=== PATIENT | male | born 1935 | race Caucasian/White ===

== ENCOUNTER 2021-03-07 20:05 | Inpatient (IN) ==
[2021-03-07] MEDS ORDERED: ONDANSETRON 4 MG/2 ML VIAL IV PRN (23:54)
[2021-03-08] MEDS ORDERED: ENOXAPARIN 100 MG/ML SYRINGE SUBCUT SCH ×2 (01:00)
[2021-03-08] MEDS: SODIUM CHLORIDE 0.9% 1,000 ML IV SCH ×2 (01:45→19:16)
[2021-03-08 04:32] LABS: Basophils # 0.1 10*3/uL (0.0-0.2); Basophils % 0.6 % (0.0-0.8); Eosinophils # 0.1 10*3/uL (0.0-0.87); Eosinophils % 1.6 % (0.00-10.9); Hematocrit 40.7 VOL% (42.0-52.0); Hemoglobin 13.8 GM/DL (14.0-18.0); Immature Granulocytes % 0.2 %; Immature Granulocytes Absolute 0.02 #; Lymphocytes % 22.8 % (21.2-54.2); Mean Corpuscular HGB Conc 33.9 GM/DL (32-36); Mean Platelet Volume 9.8 FL (9.6-12.0); Neutrophils % 68.8 % (38.7-73.9); Platelet Count 242 T/CUMM (130-400); Red Blood Count 4.07 MC/CUMM (3.8-5.5); Red Cell Distribution Width 12.1 % (9.3-17.3); White Blood Count 8.8 T/CUMM (4-12)
[2021-03-08 05:00] LABS: Risk Ratio 4.62; VLDL Cholesterol 31.8 MG/DL
[2021-03-08 05:02] LABS: Albumin 3.4 G/DL (3.4-5.0); Bilirubin,Total 0.9 MG/DL (0.20-1.00); Calcium 8.9 MG/DL (8.5-10.1); Potassium 4.3 MMOL/L (3.5-5.1); Total Protein 6.6 G/DL (6.4-8.2)
[2021-03-08] MEDS: NITROGLYCERIN 2% OINT 1 INCH/GM PACK TOP SCH ×2 (08:42→19:15)
[2021-03-08] MEDS ORDERED: NON-FORMULARY MEDICATION (Omeprazole 40 mg capsule,delayed release(DR/EC)) PO SCH (09:00)
[2021-03-08] MEDS ORDERED: ASPIRIN EC 325 MG TABLET PO SCH (09:00)
[2021-03-08] MEDS ORDERED: DIAZEPAM 5 MG TABLET PO ONE (09:04)
[2021-03-08] MEDS ORDERED: diphenhydrAMINE CAP 25 MG CAPSULE PO ONE (09:04)
[2021-03-08] MEDS: LOSARTAN 50 MG TABLET PO SCH (09:05)
[2021-03-08] MEDS: GABAPENTIN 300 MG CAPSULE PO SCH (09:05)
[2021-03-08] MEDS: PANTOPRAZOLE 40 MG TABLET PO SCH (09:05)
[2021-03-08] MEDS: PRAMIPEXOLE 0.25 MG TABLET PO SCH (09:05)
[2021-03-08] MEDS: hydroCHLOROthiazide 25 MG TABLET PO SCH (09:05)
[2021-03-08] MEDS ORDERED: HEPARIN/NACL 0.9% 2 UNITS/ML 2,000 UNIT/1,000 ML BAG IV ONE (09:35)
[2021-03-08] MEDS ORDERED: LIDOCAINE 1% 20 ML VIAL ONE (09:35)
[2021-03-08] MEDS ORDERED: fentaNYL 100 MCG/2 ML VIAL ONE (10:08)
[2021-03-08] MEDS ORDERED: MIDAZOLAM 2 MG/2 ML VIAL ONE (10:08)
[2021-03-08] MEDS ORDERED: MORPHINE 2 MG/1 ML SYRINGE IV PRN (10:47)
[2021-03-08] MEDS ORDERED: ACETAMINOPHEN 325 MG TABLET PO PRN (10:47)
[2021-03-08] MEDS: METOPROLOL SUCCINATE XL 25 MG TABLET PO SCH (19:14)
[2021-03-08] MEDS: HEPARIN DRIP 25,000 UNITS/500 ML PREMIX IV SCH (20:40)
[2021-03-08] MEDS: ZALEPLON 5 MG CAPSULE PO PRN (21:03)
[2021-03-08] MEDS: ROSUVASTATIN 20 MG TABLET PO SCH (21:03)
[2021-03-09] MEDS: NITROGLYCERIN 2% OINT 1 INCH/GM PACK TOP SCH ×4 (01:05→19:46)
[2021-03-09 03:20] LABS: Basophils % 0.2 % (0.0-0.8); Eosinophils % 0.3 % (0.00-10.9); Hematocrit 39.7 VOL% (42.0-52.0); Hemoglobin 13.7 GM/DL (14.0-18.0); Immature Granulocytes % 0.4 %; Immature Granulocytes Absolute 0.04 #; Lymphocytes # 1.5 10*3/uL (1.4-4.0); Mean Corpuscular HGB Conc 34.5 GM/DL (32-36); Mean Corpuscular Volume 98.5 FL (87-102); Mean Platelet Volume 9.9 FL (9.6-12.0); Monocytes % 7.8 % (1.7-12.7); Neutrophils % 77.3 % (38.7-73.9); Platelet Count 229 T/CUMM (130-400); Red Blood Count 4.03 MC/CUMM (3.8-5.5); White Blood Count 10.4 T/CUMM (4-12)
[2021-03-09 03:40] LABS: Calcium 8.7 MG/DL (8.5-10.1)
[2021-03-09 03:45] LABS: Risk Ratio 4.33; VLDL Cholesterol 23.4 MG/DL
[2021-03-09] MEDS: ASPIRIN EC 81 MG TABLET PO SCH (10:25)
[2021-03-09] MEDS: diphenhydrAMINE CAP 25 MG CAPSULE PO SCH (10:25)
[2021-03-09] MEDS: GABAPENTIN 300 MG CAPSULE PO SCH (10:25)
[2021-03-09] MEDS: PRAMIPEXOLE 0.25 MG TABLET PO SCH (10:25)
[2021-03-09] MEDS: METOPROLOL SUCCINATE XL 25 MG TABLET PO SCH (10:26)
[2021-03-09] MEDS: hydroCHLOROthiazide 25 MG TABLET PO SCH (10:27)
[2021-03-09] MEDS: LOSARTAN 50 MG TABLET PO SCH (10:27)
[2021-03-09] MEDS: PANTOPRAZOLE 40 MG TABLET PO SCH (10:27)
[2021-03-09] MEDS ORDERED: GLUCAGON 1 MG VIAL IM PRN (12:51)
[2021-03-09] MEDS ORDERED: DEXTROSE 50% 25 GM/50 ML VIAL IV PRN (12:51)
[2021-03-09] MEDS: HEPARIN DRIP 25,000 UNITS/500 ML PREMIX IV SCH (18:32)
[2021-03-09] MEDS: ROSUVASTATIN 20 MG TABLET PO SCH (20:40)
[2021-03-09] MEDS: ZALEPLON 5 MG CAPSULE PO PRN (20:40)
[2021-03-10] MEDS: NITROGLYCERIN 2% OINT 1 INCH/GM PACK TOP SCH ×5 (01:55→23:39)
[2021-03-10 05:19] LABS: Calcium 8.4 MG/DL (8.5-10.1); Osmolality,Calculated 274.1 MOS/KG (273-304); Potassium 3.7 MMOL/L (3.5-5.1)
[2021-03-10] MEDS: diphenhydrAMINE CAP 25 MG CAPSULE PO SCH (09:28)
[2021-03-10] MEDS: GABAPENTIN 300 MG CAPSULE PO SCH (09:28)
[2021-03-10] MEDS: hydroCHLOROthiazide 25 MG TABLET PO SCH (09:28)
[2021-03-10] MEDS: LOSARTAN 50 MG TABLET PO SCH (09:29)
[2021-03-10] MEDS: PANTOPRAZOLE 40 MG TABLET PO SCH (09:29)
[2021-03-10] MEDS: ASPIRIN EC 81 MG TABLET PO SCH (09:29)
[2021-03-10] MEDS: PRAMIPEXOLE 0.25 MG TABLET PO SCH (09:29)
[2021-03-10] MEDS: METOPROLOL SUCCINATE XL 25 MG TABLET PO SCH (09:29)
[2021-03-10] MEDS: HEPARIN DRIP 25,000 UNITS/500 ML PREMIX IV SCH ×2 (14:04→19:27)
[2021-03-10] MEDS: ROSUVASTATIN 20 MG TABLET PO SCH (21:07)
[2021-03-10] MEDS: MELATONIN 3 MG TABLET PO PRN (21:08)
[2021-03-11 03:03] LABS: Basophils % 0.7 % (0.0-0.8); Eosinophils # 0.3 10*3/uL (0.0-0.87); Eosinophils % 4.3 % (0.00-10.9); Hematocrit 36.6 VOL% (42.0-52.0); Hemoglobin 12.4 GM/DL (14.0-18.0); Immature Granulocytes % 0.2 %; Immature Granulocytes Absolute 0.01 #; Lymphocytes # 2.1 10*3/uL (1.4-4.0); Lymphocytes % 34.2 % (21.2-54.2); Mean Corpuscular HGB Conc 33.9 GM/DL (32-36); Mean Corpuscular Volume 99.7 FL (87-102); Mean Platelet Volume 10.2 FL (9.6-12.0); Monocytes % 7.7 % (1.7-12.7); Neutrophils % 52.9 % (38.7-73.9); Platelet Count 187 T/CUMM (130-400); Red Blood Count 3.67 MC/CUMM (3.8-5.5); Red Cell Distribution Width 12.2 % (9.3-17.3); White Blood Count 6.1 T/CUMM (4-12)
[2021-03-11 03:21] LABS: Calcium 8.4 MG/DL (8.5-10.1); Osmolality,Calculated 268.5 MOS/KG (273-304); Potassium 3.4 MMOL/L (3.5-5.1)
[2021-03-11] MEDS: NITROGLYCERIN 2% OINT 1 INCH/GM PACK TOP SCH ×3 (06:38→20:03)
[2021-03-11] MEDS ORDERED: POTASSIUM CHLORIDE 20 MEQ TABLET PO ONE (07:22)
[2021-03-11] MEDS: DAPAGLIFLOZIN 5 MG TABLET PO SCH (09:18)
[2021-03-11] MEDS: AMIODARONE 200 MG TABLET PO SCH ×2 (09:18→20:40)
[2021-03-11] MEDS: MAGNESIUM OXIDE 400 MG TABLET PO SCH ×2 (09:18→20:40)
[2021-03-11] MEDS: ASPIRIN EC 81 MG TABLET PO SCH (09:18)
[2021-03-11] MEDS: PANTOPRAZOLE 40 MG TABLET PO SCH (09:19)
[2021-03-11] MEDS: LOSARTAN 50 MG TABLET PO SCH (09:19)
[2021-03-11] MEDS: PRAMIPEXOLE 0.25 MG TABLET PO SCH (09:19)
[2021-03-11] MEDS: GABAPENTIN 300 MG CAPSULE PO SCH (09:19)
[2021-03-11] MEDS: METOPROLOL SUCCINATE XL 25 MG TABLET PO SCH (09:19)
[2021-03-11] MEDS: diphenhydrAMINE CAP 25 MG CAPSULE PO SCH (09:20)
[2021-03-11] MEDS: NICOTINE 14 MG/24 HR PATCH TRANSDERM SCH (09:27)
[2021-03-11] MEDS: HEPARIN DRIP 25,000 UNITS/500 ML PREMIX IV SCH (16:30)
[2021-03-11] MEDS: POTASSIUM CHLORIDE 20 MEQ TABLET PO SCH ×2 (20:40→21:10)
[2021-03-11] MEDS: ROSUVASTATIN 20 MG TABLET PO SCH (20:40)
[2021-03-11] MEDS: MELATONIN 3 MG TABLET PO PRN (20:40)
[2021-03-12] MEDS: NITROGLYCERIN 2% OINT 1 INCH/GM PACK TOP SCH ×4 (01:14→21:44)
[2021-03-12] MEDS: ZALEPLON 5 MG CAPSULE PO PRN ×2 (01:35→23:55)
[2021-03-12 06:29] LABS: Basophils % 0.6 % (0.0-0.8); Eosinophils # 0.3 10*3/uL (0.0-0.87); Eosinophils % 4.7 % (0.00-10.9); Hematocrit 37.1 VOL% (42.0-52.0); Hemoglobin 12.2 GM/DL (14.0-18.0); Immature Granulocytes % 0.5 %; Immature Granulocytes Absolute 0.03 #; Lymphocytes # 1.9 10*3/uL (1.4-4.0); Lymphocytes % 29.4 % (21.2-54.2); Mean Corpuscular HGB Conc 32.9 GM/DL (32-36); Mean Corpuscular Volume 103.1 FL (87-102); Mean Platelet Volume 10.6 FL (9.6-12.0); Neutrophils % 54.8 % (38.7-73.9); Platelet Count 218 T/CUMM (130-400); White Blood Count 6.4 T/CUMM (4-12)
[2021-03-12 06:33] LABS: Albumin 3.1 G/DL (3.4-5.0); Bilirubin,Total 0.5 MG/DL (0.20-1.00); Calcium 8.9 MG/DL (8.5-10.1); Osmolality,Calculated 273.1 MOS/KG (273-304); Potassium 4.6 MMOL/L (3.5-5.1); Total Protein 6.3 G/DL (6.4-8.2)
[2021-03-12] MEDS: CHLORHEXIDINE 4% SOLN 118 ML BOTTLE TOP SCH ×2 (08:30→18:00)
[2021-03-12] MEDS ORDERED: SODIUM CHLORIDE 0.9% 1,000 ML IV SCH (09:00)
[2021-03-12 09:11] LABS: ABG Base Excess -5.1 MMOL/L (-2.5-2.5); ABG HCO3 20.2 MMOL/L (20-26); ABG Oxygen Saturation 96.1 % (95-100); ABG PCO2 29.6 MM HG (35-48); ABG PH 7.403 (7.35-7.45); ABG PO2 87.8 MM HG (80-95); ABG TCO2 16.1 MMOL/L (23-27)
[2021-03-12] MEDS: CHLORHEXIDINE 0.12% ORAL RINSE 60 ML BOTTLE SWISH/SPIT SCH ×2 (10:08→21:39)
[2021-03-12] MEDS: DAPAGLIFLOZIN 5 MG TABLET PO SCH (10:09)
[2021-03-12] MEDS: GABAPENTIN 300 MG CAPSULE PO SCH (10:10)
[2021-03-12] MEDS: MAGNESIUM OXIDE 400 MG TABLET PO SCH ×2 (10:10→21:34)
[2021-03-12] MEDS: diphenhydrAMINE CAP 25 MG CAPSULE PO SCH (10:10)
[2021-03-12] MEDS: ASPIRIN EC 81 MG TABLET PO SCH (10:10)
[2021-03-12] MEDS: PRAMIPEXOLE 0.25 MG TABLET PO SCH (10:10)
[2021-03-12] MEDS: AMIODARONE 200 MG TABLET PO SCH ×2 (10:10→21:34)
[2021-03-12] MEDS: LOSARTAN 50 MG TABLET PO SCH (10:11)
[2021-03-12] MEDS: POTASSIUM CHLORIDE 20 MEQ TABLET PO SCH ×2 (10:11→21:34)
[2021-03-12] MEDS: NICOTINE 14 MG/24 HR PATCH TRANSDERM SCH (10:18)
[2021-03-12] MEDS: PANTOPRAZOLE 40 MG TABLET PO SCH (10:21)
[2021-03-12] MEDS: METOPROLOL SUCCINATE XL 25 MG TABLET PO SCH (10:21)
[2021-03-12] MEDS ORDERED: DIAZEPAM 5 MG TABLET PO ONE (10:54)
[2021-03-12] MEDS ORDERED: PANTOPRAZOLE 40 MG TABLET PO ONE (10:54)
[2021-03-12] MEDS: HEPARIN DRIP 25,000 UNITS/500 ML PREMIX IV SCH (13:34)
[2021-03-12] MEDS: ROSUVASTATIN 20 MG TABLET PO SCH (21:34)
[2021-03-12] MEDS: MELATONIN 3 MG TABLET PO PRN (21:34)
[2021-03-13] MEDS: NITROGLYCERIN 2% OINT 1 INCH/GM PACK TOP SCH ×2 (00:30→05:41)
[2021-03-13] MEDS: CHLORHEXIDINE 4% SOLN 118 ML BOTTLE TOP SCH (04:00)
[2021-03-13] MEDS ORDERED: VANCOMYCIN INJ 1,000 MG in SODIUM CHLORIDE 0.9% 250 ML IV ONE (05:00)
[2021-03-13] MEDS ORDERED: VANCOMYCIN 1,000 MG VIAL ONE (05:08)
[2021-03-13] MEDS ORDERED: VANCOMYCIN 500 MG VIAL ONE (05:08)
[2021-03-13] MEDS ORDERED: PAPAVERINE 60 MG/2 ML VIAL ONE (05:08)
[2021-03-13] MEDS ORDERED: DIAZEPAM 5 MG TABLET PO ONE (06:00)
[2021-03-13] MEDS ORDERED: PANTOPRAZOLE 40 MG TABLET PO ONE (06:00)
[2021-03-13] MEDS ORDERED: SODIUM CHLORIDE 0.9% 1,000 ML IV SCH (06:00)
[2021-03-13] MEDS ORDERED: ALBUTEROL/IPRATROPIUM 3 ML NEB RESP TX ONE (06:02)
[2021-03-13 06:06] LABS: Basophils % 0.5 % (0.0-0.8); Eosinophils # 0.2 10*3/uL (0.0-0.87); Eosinophils % 4.2 % (0.00-10.9); Hematocrit 37.3 VOL% (42.0-52.0); Hemoglobin 12.5 GM/DL (14.0-18.0); Immature Granulocytes % 0.3 %; Immature Granulocytes Absolute 0.02 #; Lymphocytes # 1.7 10*3/uL (1.4-4.0); Lymphocytes % 28.5 % (21.2-54.2); Mean Corpuscular HGB Conc 33.5 GM/DL (32-36); Mean Corpuscular Volume 100.3 FL (87-102); Monocytes % 7.8 % (1.7-12.7); Neutrophils % 58.7 % (38.7-73.9); Platelet Count 233 T/CUMM (130-400); Red Blood Count 3.72 MC/CUMM (3.8-5.5); Red Cell Distribution Width 12.1 % (9.3-17.3); White Blood Count 5.8 T/CUMM (4-12)
[2021-03-13] MEDS ORDERED: SUFentanil 250 MCG/5 ML AMP ONE ×2 (06:08)
[2021-03-13] MEDS ORDERED: MIDAZOLAM 10 MG/2 ML VIAL ONE ×4 (06:08)
[2021-03-13] MEDS ORDERED: AMINOCAPROIC ACID 5,000 MG/20 ML VIAL ONE ×4 (06:12→07:49)
[2021-03-13 06:15] LABS: PT Patient Result 10.9 SECS (10.5-12.0); Partial Thromboplastin Time 27.3 SECS (23.9-33.8)
[2021-03-13 06:25] LABS: Albumin 3.4 G/DL (3.4-5.0); Calcium 8.9 MG/DL (8.5-10.1); Osmolality,Calculated 272.1 MOS/KG (273-304); Potassium 4.5 MMOL/L (3.5-5.1); Total Protein 6.8 G/DL (6.4-8.2)
[2021-03-13 07:39] LABS: ABG Base Excess -4.8 MMOL/L (-2.5-2.5); ABG HCO3 20.3 MMOL/L (20-26); ABG Oxygen Saturation 98.3 % (95-100); ABG PCO2 37.4 MM HG (35-48); ABG PH 7.352 (7.35-7.45); ABG TCO2 21.4 MMOL/L (23-27); Glucose Heart Surgery 108 MG/DL (74-106); Hemoglobin Heart Surgery 11.9 G/DL (14.0-18.0); PCO2 Patient Temp Arterial 37.4 MMHG; PH Patient Temp Arterial 7.352; Patient Temperature 37 CELCIUS; Potassium Heart/CVR 4.1 MMOL/L (3.5-5.1); Sodium Heart/CVR 134 MMOL/L (135-145)
[2021-03-13 07:46] LABS: Bilirubin,Urine Negative (Negative); Blood, Urine Negative (Negative); Glucose,Urine (UA) >=500 mg/dL (Negative); Ketones,Urine Negative (Negative); Nitrite,Urine Negative (Negative); Protein,Urine Negative; RBC,Urine <1 /HPF (0-4); Urine Appearance CLEAR (Clear); Urine Color Yellow (Yellow); Urine Specific Gravity 1.009 (1.001-1.035); Urine Urobilinogen < 2.0 EU/DL (0.2-1.0)
[2021-03-13] MEDS ORDERED: SEVOFLURANE 1 UNIT/15 MINUTE INH ONE ×2 (07:49→12:50)
[2021-03-13] MEDS ORDERED: ePHEDrine 50 MG/ML VIAL ONE (07:49)
[2021-03-13] MEDS ORDERED: PHENYLEPHRINE DRIP 20 MG/250 ML PREMIX IV ONE (07:49)
[2021-03-13] MEDS ORDERED: LACTATED RINGERS 1,000 ML IV ONE (07:50)
[2021-03-13] MEDS ORDERED: SODIUM CHLORIDE 0.9% 250 ML IV ONE (07:50)
[2021-03-13] MEDS ORDERED: SODIUM CHLORIDE 0.9% 100 ML IV ONE (07:50)
[2021-03-13] MEDS ORDERED: SODIUM CHLORIDE 0.9% 1,000 ML IV ONE (07:50)
[2021-03-13] MEDS ORDERED: LIDOCAINE 2% 5 ML VIAL ONE ×3 (07:50→12:51)
[2021-03-13 08:32] LABS: Hematocrit Heart Surgery 22.1 PERCENT (42-52); Hemoglobin Heart Surgery 7.1 G/DL (14.0-18.0); PCO2 Patient Temp Venous 31.8 MM HG; PH Patient Temp Venous 7.423; PO2 Patient Temp Venous 40.9 MM HG; Potassium Heart/CVR 4.8 MMOL/L (3.5-5.1); VBG HCO3 21.6 MEQ/L (24-28); VBG Oxygen Saturation 80.3 %; VBG PH 7.394; VBG PO2 46.9 MMHG (17-40); VBG Total CO2 20.3 MMOL/L
[2021-03-13] MEDS ORDERED: ALBUMIN 5% 12.5 GM/250 ML VIAL IV ONE (08:53)
[2021-03-13] MEDS ORDERED: diphenhydrAMINE 50 MG/1 ML VIAL ONE (08:53)
[2021-03-13] MEDS ORDERED: HEPARIN/NACL 0.9% 2 UNITS/ML 1,000 UNIT/500 ML BAG IV ONE ×2 (08:53→10:04)
[2021-03-13] MEDS ORDERED: DOBUTamine 500 MG/250 ML PREMIX IV ONE (08:53)
[2021-03-13] MEDS ORDERED: FAMOTIDINE 20 MG/2 ML VIAL IV ONE (08:54)
[2021-03-13 09:05] LABS: Hematocrit Heart Surgery 22.8 PERCENT (42-52); Hemoglobin Heart Surgery 7.3 G/DL (14.0-18.0); PCO2 Patient Temp Venous 29.7 MM HG; PH Patient Temp Venous 7.427; PO2 Patient Temp Venous 42.2 MM HG; Potassium Heart/CVR 4.7 MMOL/L (3.5-5.1); VBG Base Excess -4.1 MEQ/L (0-4); VBG HCO3 20.8 MEQ/L (24-28); VBG PCO2 32.7 MMHG (41-51); VBG PH 7.398; VBG PO2 48.3 MMHG (17-40)
[2021-03-13] MEDS ORDERED: CALCIUM CHLORIDE 1,000 MG/10 ML VIAL IV ONE (09:06)
[2021-03-13] MEDS ORDERED: EPINEPHrine 1 MG/ML VIAL ONE ×3 (09:39→13:35)
[2021-03-13] MEDS ORDERED: POTASSIUM CHLORIDE RIDER 20 MEQ/100 ML PREMIX IV ONE (09:47)
[2021-03-13] MEDS ORDERED: ALBUMIN 5% 25.0 GM/500 ML VIAL IV ONE (09:47)
[2021-03-13] MEDS ORDERED: PHENYLEPHRINE DRIP 40 MG/250 ML PREMIX IV ONE (09:48)
[2021-03-13 09:51] LABS: Hematocrit Heart Surgery 23.6 PERCENT (42-52); Hemoglobin Heart Surgery 7.6 G/DL (14.0-18.0); PCO2 Patient Temp Venous 35.2 MM HG; PH Patient Temp Venous 7.37; Potassium Heart/CVR 4.5 MMOL/L (3.5-5.1); VBG Base Excess -4.4 MEQ/L (0-4); VBG HCO3 20.5 MEQ/L (24-28); VBG Oxygen Saturation 78.5 %; VBG PCO2 35.2 MMHG (41-51); VBG PH 7.37; VBG Total CO2 19.2 MMOL/L
[2021-03-13] MEDS ORDERED: ALBUMIN 25% 25 GM/100 ML VIAL IV ONE (10:03)
[2021-03-13] MEDS ORDERED: MAGNESIUM SULFATE 5 GM/10 ML VIAL IV ONE (10:04)
[2021-03-13] MEDS ORDERED: DEXTROSE 5% KCL 20 MEQ 20 MEQ/1,000 ML BAG IV ONE (10:04)
[2021-03-13] MEDS ORDERED: MANNITOL 100 GM/500 ML BAG IV ONE (10:04)
[2021-03-13] MEDS ORDERED: PROTAMINE SULFATE 250 MG/25 ML VIAL IV ONE (10:04)
[2021-03-13] MEDS ORDERED: methylPREDNISolone SOD SUC 1,000 MG/8 ML VIAL ONE (10:04)
[2021-03-13] MEDS ORDERED: HEPARIN 10,000 UNIT/10 ML VIAL ONE (10:05)
[2021-03-13] MEDS ORDERED: PROTAMINE SULFATE 50 MG/5 ML VIAL IV ONE (10:05)
[2021-03-13] MEDS ORDERED: SODIUM BICARBONATE 50 MEQ/50 ML VIAL IV ONE ×6 (10:05→17:41)
[2021-03-13] MEDS ORDERED: FUROSEMIDE 20 MG/2 ML VIAL ONE (10:05)
[2021-03-13 10:17] LABS: ABG Base Excess -7.5 MMOL/L (-2.5-2.5); ABG HCO3 17.5 MMOL/L (20-26); ABG Oxygen Saturation 98.1 % (95-100); ABG PCO2 33.3 MM HG (35-48); ABG PH 7.339 (7.35-7.45); ABG PO2 191.9 MM HG (80-95); ABG TCO2 18.5 MMOL/L (23-27); Glucose Heart Surgery 255 MG/DL (74-106); Hemoglobin Heart Surgery 8.5 G/DL (14.0-18.0); Ionized Calcium Arterial 1.25 MMOL/L (1.21-1.46); PCO2 Patient Temp Arterial 33.3 MMHG; PH Patient Temp Arterial 7.339; PO2 Patient Temp Arterial 191.9 MM HG; Patient Temperature 37 CELCIUS; Potassium Heart/CVR 3.9 MMOL/L (3.5-5.1); Sodium Heart/CVR 127 MMOL/L (135-145)
[2021-03-13 10:52] LABS: ABG Base Excess -4.1 MMOL/L (-2.5-2.5); ABG Oxygen Saturation 99.2 % (95-100); ABG PCO2 39.5 MM HG (35-48); ABG PH 7.339 (7.35-7.45); Glucose Heart Surgery 268 MG/DL (74-106); Hematocrit Heart Surgery 24.1 PERCENT (42-52); Hemoglobin Heart Surgery 7.7 G/DL (14.0-18.0); Ionized Calcium Arterial 1.25 MMOL/L (1.21-1.46); PCO2 Patient Temp Arterial 39.5 MMHG; PH Patient Temp Arterial 7.339; Patient Temperature 37 CELCIUS; Potassium Heart/CVR 4.3 MMOL/L (3.5-5.1); Sodium Heart/CVR 134 MMOL/L (135-145)
[2021-03-13] MEDS ORDERED: EPINEPHrine 1 MG/10 ML SYRINGE ONE (11:11)
[2021-03-13] MEDS ORDERED: LIDOCAINE DRIP 2,000 MG/250 ML PREMIX IV SCH (11:30)
[2021-03-13] MEDS: PHENYLEPHRINE DRIP 40 MG/250 ML PREMIX IV PRN ×3 (11:35→15:40)
[2021-03-13] MEDS: LACTATED RINGERS 1,000 ML IV PRN ×6 (11:40→20:00)
[2021-03-13] MEDS ORDERED: INSULIN REGULAR DRIP 100 ML IV SCH (11:55)
[2021-03-13] MEDS ORDERED: MIDAZOLAM 10 MG/2 ML VIAL IV PRN (11:55)
[2021-03-13] MEDS ORDERED: INSULIN REGULAR 100 UNIT/ML IV ONE (11:55)
[2021-03-13] MEDS ORDERED: CHLORHEXIDINE 4% SOLN 118 ML BOTTLE TOP PRN (11:55)
[2021-03-13] MEDS ORDERED: DEXTROSE 50% 25 GM/50 ML VIAL IV PRN ×2 (11:55)
[2021-03-13] MEDS ORDERED: VECURONIUM 10 MG VIAL IV PRN ×2 (11:55)
[2021-03-13] MEDS ORDERED: CALCIUM CHLORIDE 1,000 MG/10 ML SYRINGE IV PRN (11:55)
[2021-03-13] MEDS ORDERED: ACETAMINOPHEN 650 MG SUPP RECTAL PRN (11:55)
[2021-03-13] MEDS ORDERED: MAGNESIUM SULF RIDER 2 GM/50 ML PREMIX IV PRN (11:55)
[2021-03-13] MEDS ORDERED: SODIUM CHLORIDE 0.45% 1,000 ML IV SCH ×2 (11:55)
[2021-03-13] MEDS ORDERED: MAGNESIUM SULF RIDER 4 GM/100 ML PREMIX IV PRN (11:55)
[2021-03-13] MEDS ORDERED: ONDANSETRON 4 MG/2 ML VIAL IV PRN (11:55)
[2021-03-13] MEDS ORDERED: NITROPRUSSIDE 100 MG in DEXTROSE 5% 250 ML IV PRN (11:55)
[2021-03-13] MEDS ORDERED: LACTATED RINGERS 250 ML IV PRN (11:55)
[2021-03-13] MEDS ORDERED: MIDAZOLAM 2 MG/2 ML VIAL IV PRN (11:55)
[2021-03-13] MEDS ORDERED: MORPHINE 10 MG/1 ML VIAL IV PRN (11:55)
[2021-03-13] MEDS ORDERED: INSULIN REGULAR 100 UNIT/ML IV PRN (11:55)
[2021-03-13 11:59] LABS: ABG Base Excess -16.6 MMOL/L (-2.5-2.5); ABG HCO3 11.6 MMOL/L (20-26); ABG Oxygen Saturation 89.8 % (95-100); ABG PCO2 40.3 MM HG (35-48); ABG PO2 85.2 MM HG (80-95); Glucose Heart Surgery 322 MG/DL (74-106); Hematocrit Heart Surgery 25.9 PERCENT (42-52); Hemoglobin Heart Surgery 8.3 G/DL (14.0-18.0); Potassium Heart/CVR 4.5 MMOL/L (3.5-5.1)
[2021-03-13 12:00] LABS: ABG PH 7.094 (7.35-7.45)
[2021-03-13 12:03] LABS: Basophils % 0.1 % (0.0-0.8); Eosinophils % 0.3 % (0.00-10.9); Hematocrit 25.3 VOL% (42.0-52.0); Hemoglobin 8.1 GM/DL (14.0-18.0); Immature Granulocytes % 0.9 %; Immature Granulocytes Absolute 0.06 #; Lymphocytes # 1.8 10*3/uL (1.4-4.0); Lymphocytes % 26.2 % (21.2-54.2); Mean Corpuscular Volume 106.8 FL (87-102); Mean Platelet Volume 9.9 FL (9.6-12.0); Monocytes % 4.4 % (1.7-12.7); Neutrophils % 68.1 % (38.7-73.9); Platelet Count 86 T/CUMM (130-400); Red Blood Count 2.37 MC/CUMM (3.8-5.5); Red Cell Distribution Width 12.3 % (9.3-17.3); White Blood Count 6.8 T/CUMM (4-12)
[2021-03-13] MEDS: SODIUM BICARBONATE 50 MEQ/50 ML VIAL IV PRN ×13 (12:10→22:30)
[2021-03-13 12:11] LABS: INR 1.3; PT Patient Result 14.2 SECS (10.5-12.0); Partial Thromboplastin Time 30.5 SECS (23.9-33.8)
[2021-03-13 12:22] LABS: CKMB % 9.1 %
[2021-03-13 12:24] LABS: High Sensitive Troponin I* 8555.7 ng/L (0-78)
[2021-03-13 12:26] LABS: Albumin 2.6 G/DL (3.4-5.0); Bilirubin,Total 0.7 MG/DL (0.20-1.00); Calcium 8.4 MG/DL (8.5-10.1); Osmolality,Calculated 286.8 MOS/KG (273-304); Potassium 4.5 MMOL/L (3.5-5.1); Total Protein 4.5 G/DL (6.4-8.2)
[2021-03-13 13:23] LABS: ABG Base Excess -16.2 MMOL/L (-2.5-2.5); ABG HCO3 11.9 MMOL/L (20-26); ABG Oxygen Saturation 94.7 % (95-100); ABG PCO2 42.8 MM HG (35-48); ABG TCO2 12.6 MMOL/L (23-27); Glucose Heart Surgery 226 MG/DL (74-106); Hematocrit Heart Surgery 24.3 PERCENT (42-52); Hemoglobin Heart Surgery 7.8 G/DL (14.0-18.0)
[2021-03-13 13:24] LABS: ABG PH 7.086 (7.35-7.45)
[2021-03-13] MEDS: POTASSIUM CHLORIDE RIDER 20 MEQ/100 ML PREMIX IV PRN ×4 (13:35→22:59)
[2021-03-13] MEDS: ALBUMIN 5% 12.5 GM/250 ML VIAL IV PRN ×4 (13:45→23:00)
[2021-03-13] MEDS ORDERED: FUROSEMIDE 40 MG/4 ML VIAL ONE (14:12)
[2021-03-13] MEDS ORDERED: FUROSEMIDE 40 MG/4 ML VIAL IV ONE (14:15)
[2021-03-13 14:43] VITALS: BP 90/45
[2021-03-13 15:22] LABS: ABG Base Excess -13.2 MMOL/L (-2.5-2.5); ABG HCO3 14.2 MMOL/L (20-26); ABG Oxygen Saturation 94.6 % (95-100); ABG PCO2 47.7 MM HG (35-48); ABG PO2 97.5 MM HG (80-95); Glucose Heart Surgery 198 MG/DL (74-106); Hematocrit Heart Surgery 34.5 PERCENT (42-52); Hemoglobin Heart Surgery 11.2 G/DL (14.0-18.0); Potassium Heart/CVR 3.6 MMOL/L (3.5-5.1)
[2021-03-13 15:24] LABS: ABG PH 7.133 (7.35-7.45)
[2021-03-13] MEDS ORDERED: PHENYLEPHRINE INJ 160 MG in SODIUM CHLORIDE 0.9% 234 ML IV PRN (15:54)
[2021-03-13] MEDS: POTASSIUM CHLORIDE RIDER 10 MEQ/100 ML PREMIX IV PRN ×2 (16:10→18:45)
[2021-03-13 17:35] LABS: ABG Base Excess -11.5 MMOL/L (-2.5-2.5); ABG HCO3 15.4 MMOL/L (20-26); ABG PCO2 43.7 MM HG (35-48); ABG PO2 91.5 MM HG (80-95); ABG TCO2 15.3 MMOL/L (23-27); Glucose Heart Surgery 167 MG/DL (74-106); Potassium Heart/CVR 3.8 MMOL/L (3.5-5.1)
[2021-03-13 17:37] LABS: ABG PH 7.189 (7.35-7.45)
[2021-03-13] MEDS ORDERED: FUROSEMIDE INJ 200 MG in SODIUM CHLORIDE 0.9% 50 ML IV ONE (19:09)
[2021-03-13 19:18] LABS: ABG Base Excess -5.8 MMOL/L (-2.5-2.5); ABG HCO3 19.6 MMOL/L (20-26); ABG Oxygen Saturation 95.9 % (95-100); ABG PCO2 44.9 MM HG (35-48); ABG PH 7.278 (7.35-7.45); ABG PO2 96.3 MM HG (80-95); ABG TCO2 18.9 MMOL/L (23-27); Glucose Heart Surgery 147 MG/DL (74-106); Hematocrit Heart Surgery 37.3 PERCENT (42-52); Hemoglobin Heart Surgery 12.1 G/DL (14.0-18.0); Potassium Heart/CVR 4.4 MMOL/L (3.5-5.1)
[2021-03-13] MEDS ORDERED: FUROSEMIDE INJ 100 MG in SODIUM CHLORIDE 0.9% 90 ML IV SCH (19:30)
[2021-03-13] MEDS ORDERED: SODIUM BICARB INJ 100 MEQ in SODIUM CHLORIDE 0.45% 1,000 ML IV SCH (20:00)
[2021-03-13] MEDS: AMIODARONE 200 MG TABLET PO SCH ×2 (20:06→22:49)
[2021-03-13] MEDS: HEPARIN DRIP 25,000 UNITS/500 ML PREMIX IV SCH (20:12)
[2021-03-13] MEDS: LOSARTAN 50 MG TABLET PO SCH (20:13)
[2021-03-13] MEDS: POTASSIUM CHLORIDE 20 MEQ TABLET PO SCH (20:13)
[2021-03-13] MEDS: diphenhydrAMINE CAP 25 MG CAPSULE PO SCH (20:13)
[2021-03-13] MEDS: ASPIRIN EC 81 MG TABLET PO SCH (20:13)
[2021-03-13] MEDS: DAPAGLIFLOZIN 5 MG TABLET PO SCH (20:13)
[2021-03-13] MEDS: MAGNESIUM OXIDE 400 MG TABLET PO SCH (20:13)
[2021-03-13] MEDS: PRAMIPEXOLE 0.25 MG TABLET PO SCH (20:13)
[2021-03-13] MEDS: GABAPENTIN 300 MG CAPSULE PO SCH (20:14)
[2021-03-13] MEDS: CHLORHEXIDINE 0.12% ORAL RINSE 60 ML BOTTLE SWISH/SPIT SCH (20:14)
[2021-03-13] MEDS: PANTOPRAZOLE 40 MG TABLET PO SCH (20:14)
[2021-03-13] MEDS: NICOTINE 14 MG/24 HR PATCH TRANSDERM SCH (20:14)
[2021-03-13] MEDS: METOPROLOL SUCCINATE XL 25 MG TABLET PO SCH (20:14)
[2021-03-13] MEDS ORDERED: CHLORHEXIDINE 0.12% ORAL RINSE 60 ML BOTTLE SWISH/SPIT SCH (21:00)
[2021-03-13 22:19] LABS: ABG Base Excess -11.1 MMOL/L (-2.5-2.5); ABG HCO3 15.6 MMOL/L (20-26); ABG Oxygen Saturation 94.2 % (95-100); ABG PCO2 48.7 MM HG (35-48); ABG TCO2 16.4 MMOL/L (23-27); Glucose Heart Surgery 332 MG/DL (74-106); Hematocrit Heart Surgery 33.3 PERCENT (42-52); Hemoglobin Heart Surgery 10.8 G/DL (14.0-18.0); Potassium Heart/CVR 3.9 MMOL/L (3.5-5.1)
[2021-03-13 22:20] LABS: ABG PH 7.166 (7.35-7.45)
[2021-03-13] MEDS ORDERED: VANCOMYCIN INJ 1,000 MG in SODIUM CHLORIDE 0.9% 250 ML IV SCH (22:30)
[2021-03-13] MEDS ORDERED: SODIUM CHLORIDE 0.9% 1,000 ML IV PRN (23:05)
[2021-03-13 23:42] LABS: ABG Base Excess -12.3 MMOL/L (-2.5-2.5); ABG HCO3 14.8 MMOL/L (20-26); ABG Oxygen Saturation 93.6 % (95-100); ABG PCO2 48.3 MM HG (35-48); ABG PO2 91.6 MM HG (80-95); ABG TCO2 15.7 MMOL/L (23-27); Glucose Heart Surgery 167 MG/DL (74-106); Hematocrit Heart Surgery 32.4 PERCENT (42-52); Hemoglobin Heart Surgery 10.5 G/DL (14.0-18.0); Potassium Heart/CVR 5.3 MMOL/L (3.5-5.1)
[2021-03-13 23:44] LABS: ABG PH 7.144 (7.35-7.45)
== END 2021-03-13 23:40 | disposition expired | DRG 234 ==
LOC: N.ED 20:05 → N.EDINP 03-08 00:43 → SUATTDRO 03-08 00:43 → N.TELES 03-08 09:36 → N.CVR 03-13 10:58
PROVIDERS: ADMIT Internal Medicine; ATTEND Internal Medicine